=== PATIENT | male | born 1985 | race Asian ===

== ENCOUNTER 2017-10-03 12:29 | Day surgery (SDC) | payer OTHER ==
[~2017-10-03 12:29] MED LIST: Glycopyrrolate 0.2 MG/ML 5 ML MDV IV ONE; Lactated Ringers 1,000 ML IV ONE; Midazolam 1 MG/ML 2 ML SDV IV ONE; Neostigmine Methylsulfate 10 MG/10 ML MDV IVPUSH ONE; Ondansetron 4 MG/2 ML SDV IVPUSH ONE; Propofol 200 MG/20 ML SDV IV ONE; Rocuronium 100 MG/10 ML MDV IV ONE; Succinylcholine 200 MG/10 ML MDV IV ONE; fentaNYL 100 MCG/2 ML SDV IV ONE
[2017-10-03] MEDS ORDERED: Ondansetron 8 MG Tab.DIS PO ONE (12:36)
[2017-10-03] MEDS ORDERED: Alum Hydroxide/Mag Hydroxide 15 ML, Lidocaine 2% 15 ML PO ONE ×2 (12:37)
[2017-10-03] MEDS ORDERED: Ondansetron 4 MG/2 ML SDV IVPUSH ONE (13:30)
[2017-10-03] MEDS ORDERED: proTAMINE 250 MG/25 ML SDV IVPUSH ONE (13:30)
[2017-10-03] MEDS ORDERED: Sodium Chloride 0.9% 1,000 ML IV ONE (13:30)
--- NOTE | 2017-10-03 13:30 | EDM.PDOC ---
ED HPI GENERAL MEDICAL PROBLEM - General Stated Complaint: STOMACH PAIN Time Seen by Provider: 10/03/17 12:29 Source of Information: Reports: Patient History Limitations: Reports: No Limitations - History of Present Illness INITIAL COMMENTS - FREE TEXT/NARRATIVE: 31 y.o.w.m came to the ed due to N/V and loose marin 1 hour after he ate breakfast. Pt C/O severe angelique at his Mid upper and RUQ of his abdomen. Pressure applied to his RLQ of his abdomen makes the pain at his BP 166/93 RR 18 Temp 37 Pulse ox 100% Pulse 60 Onset Date: 10/03/17 Onset Time: 09:00 Duration: Hour(s): Location: Reports: Abdomen Quality: Reports: Burning, Dull, Pressure, Throbbing Severity: Moderate Improves with: Reports: Rest Worsens with: Reports: Movement Associated Symptoms: Reports: Nausea/Vomiting mid epigastric pain Pain Score (Numeric/FACES): 10 ACROSS ABDOMEN Pain Score (Numeric/FACES): 5 THROAT Pain Score (Numeric/FACES): 8 - Related Data Allergies Allergy/AdvReac Type Severity Reaction Status Date / Time No Known Allergies Allergy Verified 10/03/17 12:57 Home Meds: Home Meds Ibuprofen 800 mg PO TID 08/24/14 [History] Past Medical History - Past Surgical History Other HEENT Surgeries/Procedures: wears glasses Social & Family History - Living Situation & Occupation Living situation: Reports: Occupation: Employed ED ROS GENERAL - Review of Systems Review Of Systems: See Below Constitutional: Reports: No Symptoms HEENT: Reports: No Symptoms Respiratory: Reports: No Symptoms Cardiovascular: Reports: No Symptoms Endocrine: Reports: No Symptoms GI/Abdominal: Reports: Abdominal Pain : Reports: No Symptoms Musculoskeletal: Reports: No Symptoms Skin: Reports: No Symptoms Neurological: Reports: No Symptoms Psychiatric: Reports: No Symptoms Hematologic/Lymphatic: Reports: No Symptoms Immunologic: Reports: No Symptoms ED EXAM, GI/ABD - Physical Exam Exam: See Below Exam Limited By: No Limitations General Appearance: Alert, WD/WN, Moderate Distress, Other (pale) Eyes: Bilateral: Normal Appearance Ears: Normal External Exam Nose: Normal Inspection Throat/Mouth: Normal Inspection, Normal Lips, Normal Teeth, Normal Gums, Normal Oropharynx, Normal Voice, No Airway Compromise Head: Atraumatic, Normocephalic Neck: Normal Inspection, Supple, Non-Tender, Full Range of Motion Respiratory/Chest: No Respiratory Distress, Lungs Clear, Normal Breath Sounds, No Accessory Muscle Use, Chest Non-Tender Cardiovascular: Normal Peripheral Pulses, Regular Rate, Rhythm, No Edema, No Gallop, No JVD, No Murmur, No Rub GI/Abdominal Exam: Guarding, Rigid (upper abd. ), Tender (epigastric/RUQ of abd. ) (Male) Exam: Deferred Rectal (Males) Exam: Deferred Back Exam: Normal Inspection, Full Range of Motion Extremities: Normal Inspection, Normal Range of Motion, Non-Tender, No Pedal Edema, Normal Capillary Refill Neurological: Alert, Oriented, CN II-XII Intact, Normal Cognition, Normal Gait, Normal Reflexes, No Motor/Sensory Deficits Psychiatric: Normal Affect, Normal Mood Skin Exam: Warm, Dry, Intact, No Rash, Pallor Lymphatic: No Adenopathy Course - Vital Signs Text/Narrative:: 31 y.o.w.m came to the ed due to N/V and loose marin 1 hour after he ate breakfast. Pt C/O severe angelique at his Mid upper and RUQ of his abdomen. Pressure applied to his RLQ of his abdomen makes the pain at his BP 166/93 RR 18 Temp 37 Pulse ox 100% Pulse 60 PE: MID upper RUQ and tender right lower abd. Imaging: Early appy, gastric wall thickening wall thickening of duodenum Labs: WBC 14K Impression: early appy, gastric wall thickening, wall thickening of duodenum 4.06 pm Consultation: Dr. Carrero: Call OR crew in, Surgery planned for 5 pm today. Tx: Protonix, Zofran, GI cocktail, NS, Zosyn, Toradol. Reexam: Improved Plan: Appendectomy, possible endoscopy, Dr. Carrero took over the care at 5 pm Last Recorded V/S: Last Vital Signs Temp 36.9 C 10/04/17 13:00 Pulse 93 10/04/17 13:00 Resp 18 10/04/17 13:00 BP 125/88 10/04/17 13:00 Pulse Ox 96 10/04/17 13:00 - Orders/Labs/Meds Labs: Laboratory Tests 10/03/17 10/03/17 10/03/17 Range/Units 13:30 13:30 13:48 WBC 14.8 H (4.5-12.0) X10-3/uL RBC 5.46 (4.30-5.75) x10(6)uL Hgb 15.6 H (11.5-15.5) g/dL Hct 45.3 (30.0-51.3) % MCV 83.0 (80-96) fL MCH 28.5 (27.7-33.6) pg MCHC 34.3 (32.2-35.4) g/dL RDW 12.3 (11.5-15.5) % Plt Count 278 (125-369) X10(3)uL MPV 7.4 (7.4-10.4) fL Neut % (Auto) 87.2 H (46-82) % Lymph % (Auto) 8.8 L (13-37) % [place] % (Auto) 2.8 L (4-12) % Eos % (Auto) 1 (1.0-5.0) % Baso % (Auto) 0 (0-2) % Neut # (Auto) 12.9 H (1.6-8.3) # Lymph # (Auto) 1.3 (0.6-5.0) # [place] # (Auto) 0.4 (0.0-1.3) # Eos # (Auto) 0.2 (0.0-0.8) # Baso # (Auto) 0.0 (0.0-0.2) # Sodium (135-145) mmol/L Potassium (3.5-5.3) mmol/L Chloride (100-110) mmol/L Carbon Dioxide (21-32) mmol/L BUN (7-18) mg/dL Creatinine (0.70-1.30) mg/dL Est Cr Clr Drug Dosing mL/min Estimated GFR (MDRD) (>60) BUN/Creatinine Ratio (9-20) Glucose (80-116) mg/dL Calcium (8.6-10.2) mg/dL Total Bilirubin (0.1-1.3) mg/dL Direct Bilirubin (0.10-0.20) mg/dL AST (5-25) IU/L ALT (12-36) U/L Alkaline Phosphatase (56-112) IU/L Total Protein (6.0-8.0) g/dL Albumin (3.5-5.2) g/dL Amylase (25-115) U/L Urine Color Yellow (YELLOW) Urine Appearance Clear (CLEAR) Urine pH 6.0 (5.0-6.5) Ur Specific [place] 1.025 (1.010-1.025) Urine Protein Negative (NEGATIVE) mg/dL Urine Glucose (UA) Normal (NEGATIVE) mg/dL Urine Ketones Negative (NEGATIVE) mg/dL Urine Occult Blood Negative (NEGATIVE) Urine Nitrite Negative (NEGATIVE) Urine Bilirubin Negative (NEGATIVE) Urine Urobilinogen Normal (NEGATIVE) mg/dL Ur Leukocyte Esterase Negative (NEGATIVE) Urine RBC 0-5 (0) Urine WBC 0-5 (0) Ur Squamous Epith Cells Few H (NS,R,O) Urine Bacteria Rare H (NS) Urine Mucus Occasional H (NS) Urine Opiates Screen Negative (NEGATIVE) Ur Oxycodone Screen Negative (NEGATIVE) Ur Propoxyphene Screen Negative (NEGATIVE) Ur Barbituates Screen Negative (NEGATIVE) Ur Tricyclics Screen Negative (NEGATIVE) Ur Phencyclidine Scrn Negative (NEGATIVE) Ur Amphetamine Screen Negative (NEGATIVE) Urine MDMA Screen Negative (NEGATIVE) U Benzodiazepines Scrn Negative (NEGATIVE) U Cocaine Metab Screen Negative (NEGATIVE) U Marijuana (THC) Screen Negative (NEGATIVE) Monoscreen (NEGATIVE) 10/03/17 10/03/17 Range/Units 13:48 13:48 WBC (4.5-12.0) X10-3/uL RBC (4.30-5.75) x10(6)uL Hgb (11.5-15.5) g/dL Hct (30.0-51.3) % MCV (80-96) fL MCH (27.7-33.6) pg MCHC (32.2-35.4) g/dL RDW (11.5-15.5) % Plt Count (125-369) X10(3)uL MPV (7.4-10.4) fL Neut % (Auto) (46-82) % Lymph % (Auto) (13-37) % [place] % (Auto) (4-12) % Eos % (Auto) (1.0-5.0) % Baso % (Auto) (0-2) % Neut # (Auto) (1.6-8.3) # Lymph # (Auto) (0.6-5.0) # [place] # (Auto) (0.0-1.3) # Eos # (Auto) (0.0-0.8) # Baso # (Auto) (0.0-0.2) # Sodium 136 (135-145) mmol/L Potassium 3.8 (3.5-5.3) mmol/L Chloride 100 (100-110) mmol/L Carbon Dioxide 30 (21-32) mmol/L BUN 12 (7-18) mg/dL Creatinine 1.0 (0.70-1.30) mg/dL Est Cr Clr Drug Dosing 97.47 mL/min Estimated GFR (MDRD) > 60 (>60) BUN/Creatinine Ratio 12.0 (9-20) Glucose 129 H (80-116) mg/dL Calcium 8.8 (8.6-10.2) mg/dL Total Bilirubin 0.5 (0.1-1.3) mg/dL Direct Bilirubin 0.10 (0.10-0.20) mg/dL AST 18 (5-25) IU/L ALT 47 H (12-36) U/L Alkaline Phosphatase 64 (56-112) IU/L Total Protein 8.0 (6.0-8.0) g/dL Albumin 4.1 (3.5-5.2) g/dL Amylase 28 (25-115) U/L Urine Color (YELLOW) Urine Appearance (CLEAR) Urine pH (5.0-6.5) Ur Specific [place] (1.010-1.025) Urine Protein (NEGATIVE) mg/dL Urine Glucose (UA) (NEGATIVE) mg/dL Urine Ketones (NEGATIVE) mg/dL Urine Occult Blood (NEGATIVE) Urine Nitrite (NEGATIVE) Urine Bilirubin (NEGATIVE) Urine Urobilinogen (NEGATIVE) mg/dL Ur Leukocyte Esterase (NEGATIVE) Urine RBC (0) Urine WBC (0) Ur Squamous Epith Cells (NS,R,O) Urine Bacteria (NS) Urine Mucus (NS) Urine Opiates Screen (NEGATIVE) Ur Oxycodone Screen (NEGATIVE) Ur Propoxyphene Screen (NEGATIVE) Ur Barbituates Screen (NEGATIVE) Ur Tricyclics Screen (NEGATIVE) Ur Phencyclidine Scrn (NEGATIVE) Ur Amphetamine Screen (NEGATIVE) Urine MDMA Screen (NEGATIVE) U Benzodiazepines Scrn (NEGATIVE) U Cocaine Metab Screen (NEGATIVE) U Marijuana (THC) Screen (NEGATIVE) Monoscreen Negative (NEGATIVE) Meds: Medications Discontinued Medications Generic Name Dose Route Start Last Admin Trade Name Freq PRN Reason Stop Dose Admin Hydrocodone Bitart/Acetaminophen 1 tab 10/03/17 18:14 10/04/17 08:42 [place] 325-5 Mg PO 1 tab Q4H PRN Administration Pain (mild 1-3) Al Hydroxide/Mg Hydroxide 15 0 ml 10/03/17 12:37 10/03/17 12:52 ml/ Lidocaine HCl 15 ml PO 10/03/17 12:38 15 ml ONETIME ONE Administration Diatrizoate Meglum/Diatrizoate Sod 30 ml 10/03/17 14:45 10/03/17 15:32 Gastrografin 37% PO 30 ml . DIRECTED LELAND Administration Fentanyl 300 mcg 10/03/17 11:30 Sublimaze IV 10/03/17 11:31 .STK-MED ONE Glycopyrrolate 0.4 mg 10/03/17 11:30 Robinul IV 10/03/17 11:31 .STK-MED ONE Sodium Chloride 1,000 mls @ 999 mls/hr 10/03/17 13:30 10/03/17 13:45 Normal Saline IV 10/03/17 14:30 999 mls/hr .BOLUS ONE Administration Pantoprazole Sodium 40 mg/ 100 mls @ 200 mls/hr 10/03/17 14:12 10/03/17 14:25 Sodium Chloride IV 10/03/17 14:41 200 mls/hr .BOLUS ONE Administration Piperacillin Sod/Tazobactam 50 mls @ 100 mls/hr 10/03/17 16:13 10/03/17 16:23 Sod 3.375 gm/ Sodium Chloride IV 10/03/17 16:42 100 mls/hr ONETIME STA Administration Lactated Ringer's 1,000 mls @ 100 mls/hr 10/03/17 17:00 10/04/17 06:53 Ringers, Lactated IV 100 mls/hr ASDIRECTED LELAND Administration Lactated Ringer's 1,000 mls @ as directed 10/03/17 11:30 Ringers, Lactated IV 10/03/17 11:31 .STK-MED ONE Iopamidol 100 ml 10/03/17 14:37 10/03/17 15:33 Isovue-370 (76%) IV 10/03/17 14:38 89 ml . DIRECTED ONE Administration Ketorolac Tromethamine 30 mg 10/03/17 14:13 10/03/17 14:23 Toradol IVPUSH 10/03/17 14:14 30 mg ONETIME ONE Administration Midazolam HCl 2 mg 10/03/17 11:30 Versed 1 Mg/Ml IV 10/03/17 11:31 .STK-MED ONE Morphine Sulfate 2 mg 10/03/17 18:14 Morphine IVPUSH Q1H PRN Pain (severe 7-10) Neostigmine Methylsulfate 4 mg 10/03/17 11:30 Neostigmine Methylsulfate IVPUSH 10/03/17 11:31 .STK-MED ONE Ondansetron HCl 8 mg 10/03/17 12:36 10/03/17 12:45 Zofran Odt PO 10/03/17 12:37 8 mg ONETIME ONE Administration Ondansetron HCl 8 mg 10/03/17 13:30 10/03/17 13:51 Zofran IVPUSH 10/03/17 13:31 8 mg ONETIME ONE Administration Ondansetron HCl 4 mg 10/03/17 11:30 Zofran IVPUSH 10/03/17 11:31 .STK-MED ONE Propofol 300 mg 10/03/17 11:30 Diprivan 20 Ml IV 10/03/17 11:31 .STK-MED ONE Rocuronium Ramsey 50 mg 10/03/17 11:30 Zemuron IV 10/03/17 11:31 .STK-MED ONE Sodium Chloride 10 ml 10/04/17 08:30 10/04/17 08:30 Saline Flush FLUSH 10 ml ASDIRECTED PRN Administration flush med Succinylcholine Chloride 100 mg 10/03/17 11:30 Quelicin IV 10/03/17 11:31 .STK-MED ONE Departure - Departure Time of Disposition: 13:00 Disposition: Still A Patient 31 Condition: Fair Clinical Impression: Appendicitis - Discharge Information
[2017-10-03] MEDS ORDERED: Pantoprazole 40 MG in Sodium Chloride 0.9% 100 ML IV ONE (14:12)
[2017-10-03] MEDS ORDERED: Ketorolac 30 MG/ML SDV IVPUSH ONE (14:13)
[2017-10-03] MEDS ORDERED: Iopamidol 755 Mg/ML 100 ML Bottle IV ONE (14:37)
[2017-10-03] MEDS ORDERED: Diatrizoate Meglumine/Diatrizoate Sodium 37% 30 ML Bottle PO SCH (14:45)
[2017-10-03] MEDS ORDERED: Piperacillin/Tazobactam 3.375 GM in Sodium Chloride 0.9% 50 ML IV STA (16:13)
[2017-10-03] MEDS: Lactated Ringers 1,000 ML IV SCH ×2 (17:00→20:47)
--- NOTE | 2017-10-03 17:14 | PCM.HP ---
H&P History of Present Illness - General Date of Service: 10/03/17 Source of Information: Patient, EMS History Limitations: Reports: No Limitations - History of Present Illness Onset of Symptoms: Reports: Today Quality: Reports: Ache, Sharp Severity: Moderate Worsens with: Reports: Movement Associated Symptoms: Reports: Nausea/Vomiting mid epigastric pain Pain Score (Numeric/FACES): 10 - Related Data Allergies/Adverse Reactions: Allergies Allergy/AdvReac Type Severity Reaction Status Date / Time No Known Allergies Allergy Verified 10/03/17 12:57 Home Medications: Home Meds Ibuprofen 800 mg PO TID 08/24/14 [History] Past Medical History - Past Health History Medical/Surgical History: Denies Medical/Surgical History - Past Surgical History Other HEENT Surgeries/Procedures: wears glasses Social & Family History - Family History Family Medical History: Unobtainable - Tobacco Use Smoking Status *Q: Never Smoker - Recreational Drug Use Recreational Drug Use: No - Living Situation & Occupation Living situation: Reports: Occupation: Employed H&P Review of Systems - Review of Systems: Review Of Systems: ROS reveals no pertinent complaints other than HPI. Exam - Exam Exam: See Below - Vital Signs Vital Signs: Last Vital Signs Temp 98.6 F 10/03/17 12:30 Pulse 60 10/03/17 12:30 Resp 17 10/03/17 12:30 BP 166/93 H 10/03/17 12:30 Pulse Ox 100 10/03/17 12:30 Weight: 78.471 kg - Exam General: Alert, Oriented Lungs: Clear to Auscultation, Normal Respiratory Effort Cardiovascular: Regular Rate, Regular Rhythm GI/Abdominal Exam: Tender (in upper abdand RLQ) (Male) Exam: No Hernia - Patient Data Lab Results Last 24 hrs: Laboratory Results - last 24 hr 10/03/17 10/03/17 10/03/17 Range/Units 13:30 13:30 13:48 WBC 14.8 H (4.5-12.0) X10-3/uL RBC 5.46 (4.30-5.75) x10(6)uL Hgb 15.6 H (11.5-15.5) g/dL Hct 45.3 (30.0-51.3) % MCV 83.0 (80-96) fL MCH 28.5 (27.7-33.6) pg MCHC 34.3 (32.2-35.4) g/dL RDW 12.3 (11.5-15.5) % Plt Count 278 (125-369) X10(3)uL MPV 7.4 (7.4-10.4) fL Neut % (Auto) 87.2 H (46-82) % Lymph % (Auto) 8.8 L (13-37) % [place] % (Auto) 2.8 L (4-12) % Eos % (Auto) 1 (1.0-5.0) % Baso % (Auto) 0 (0-2) % Neut # (Auto) 12.9 H (1.6-8.3) # Lymph # (Auto) 1.3 (0.6-5.0) # [place] # (Auto) 0.4 (0.0-1.3) # Eos # (Auto) 0.2 (0.0-0.8) # Baso # (Auto) 0.0 (0.0-0.2) # Sodium (135-145) mmol/L Potassium (3.5-5.3) mmol/L Chloride (100-110) mmol/L Carbon Dioxide (21-32) mmol/L BUN (7-18) mg/dL Creatinine (0.70-1.30) mg/dL Est Cr Clr Drug Dosing mL/min Estimated GFR (MDRD) (>60) BUN/Creatinine Ratio (9-20) Glucose (80-116) mg/dL Calcium (8.6-10.2) mg/dL Total Bilirubin (0.1-1.3) mg/dL Direct Bilirubin (0.10-0.20) mg/dL AST (5-25) IU/L ALT (12-36) U/L Alkaline Phosphatase (56-112) IU/L Total Protein (6.0-8.0) g/dL Albumin (3.5-5.2) g/dL Amylase (25-115) U/L Urine Color Yellow (YELLOW) Urine Appearance Clear (CLEAR) Urine pH 6.0 (5.0-6.5) Ur Specific [place] 1.025 (1.010-1.025) Urine Protein Negative (NEGATIVE) mg/dL Urine Glucose (UA) Normal (NEGATIVE) mg/dL Urine Ketones Negative (NEGATIVE) mg/dL Urine Occult Blood Negative (NEGATIVE) Urine Nitrite Negative (NEGATIVE) Urine Bilirubin Negative (NEGATIVE) Urine Urobilinogen Normal (NEGATIVE) mg/dL Ur Leukocyte Esterase Negative (NEGATIVE) Urine RBC 0-5 (0) Urine WBC 0-5 (0) Ur Squamous Epith Cells Few H (NS,R,O) Urine Bacteria Rare H (NS) Urine Mucus Occasional H (NS) Urine Opiates Screen Negative (NEGATIVE) Ur Oxycodone Screen Negative (NEGATIVE) Ur Propoxyphene Screen Negative (NEGATIVE) Ur Barbituates Screen Negative (NEGATIVE) Ur Tricyclics Screen Negative (NEGATIVE) Ur Phencyclidine Scrn Negative (NEGATIVE) Ur Amphetamine Screen Negative (NEGATIVE) Urine MDMA Screen Negative (NEGATIVE) U Benzodiazepines Scrn Negative (NEGATIVE) U Cocaine Metab Screen Negative (NEGATIVE) U Marijuana (THC) Screen Negative (NEGATIVE) Monoscreen (NEGATIVE) 10/03/17 10/03/17 Range/Units 13:48 13:48 WBC (4.5-12.0) X10-3/uL RBC (4.30-5.75) x10(6)uL Hgb (11.5-15.5) g/dL Hct (30.0-51.3) % MCV (80-96) fL MCH (27.7-33.6) pg MCHC (32.2-35.4) g/dL RDW (11.5-15.5) % Plt Count (125-369) X10(3)uL MPV (7.4-10.4) fL Neut % (Auto) (46-82) % Lymph % (Auto) (13-37) % [place] % (Auto) (4-12) % Eos % (Auto) (1.0-5.0) % Baso % (Auto) (0-2) % Neut # (Auto) (1.6-8.3) # Lymph # (Auto) (0.6-5.0) # [place] # (Auto) (0.0-1.3) # Eos # (Auto) (0.0-0.8) # Baso # (Auto) (0.0-0.2) # Sodium 136 (135-145) mmol/L Potassium 3.8 (3.5-5.3) mmol/L Chloride 100 (100-110) mmol/L Carbon Dioxide 30 (21-32) mmol/L BUN 12 (7-18) mg/dL Creatinine 1.0 (0.70-1.30) mg/dL Est Cr Clr Drug Dosing 97.47 mL/min Estimated GFR (MDRD) > 60 (>60) BUN/Creatinine Ratio 12.0 (9-20) Glucose 129 H (80-116) mg/dL Calcium 8.8 (8.6-10.2) mg/dL Total Bilirubin 0.5 (0.1-1.3) mg/dL Direct Bilirubin 0.10 (0.10-0.20) mg/dL AST 18 (5-25) IU/L ALT 47 H (12-36) U/L Alkaline Phosphatase 64 (56-112) IU/L Total Protein 8.0 (6.0-8.0) g/dL Albumin 4.1 (3.5-5.2) g/dL Amylase 28 (25-115) U/L Urine Color (YELLOW) Urine Appearance (CLEAR) Urine pH (5.0-6.5) Ur Specific [place] (1.010-1.025) Urine Protein (NEGATIVE) mg/dL Urine Glucose (UA) (NEGATIVE) mg/dL Urine Ketones (NEGATIVE) mg/dL Urine Occult Blood (NEGATIVE) Urine Nitrite (NEGATIVE) Urine Bilirubin (NEGATIVE) Urine Urobilinogen (NEGATIVE) mg/dL Ur Leukocyte Esterase (NEGATIVE) Urine RBC (0) Urine WBC (0) Ur Squamous Epith Cells (NS,R,O) Urine Bacteria (NS) Urine Mucus (NS) Urine Opiates Screen (NEGATIVE) Ur Oxycodone Screen (NEGATIVE) Ur Propoxyphene Screen (NEGATIVE) Ur Barbituates Screen (NEGATIVE) Ur Tricyclics Screen (NEGATIVE) Ur Phencyclidine Scrn (NEGATIVE) Ur Amphetamine Screen (NEGATIVE) Urine MDMA Screen (NEGATIVE) U Benzodiazepines Scrn (NEGATIVE) U Cocaine Metab Screen (NEGATIVE) U Marijuana (THC) Screen (NEGATIVE) Monoscreen Negative (NEGATIVE) Result Diagrams: 10/03/17 13:48 10/03/17 13:48 Eddie Results Last 24 hrs: Microbiology 10/03/17 13:30 Stool Occult Blood (EDDIE) - Final Stool / Feces NEGATIVE OCCULT BLOOD Imaging Impressions Last 24 hrs: CT suggests early appendicitis Problem List Initiated/Reviewed/Updated: Yes Orders Last 24hrs: Active Orders 24 hr Category Date Time Status Abdomen Pelvis w Cont [CT] Stat Exams 10/03/17 14:12 Taken DRUG SCREEN, URINE ALERE [URCHEM] Stat Lab 10/03/17 13:30 Ordered UA W/MICROSCOPIC [URIN] Stat Lab 10/03/17 13:30 Ordered Diatrizoate Lachelle/Diatrizoate Na [Gastrografin 37%] Med 10/03/17 14:45 Active 30 ml PO . DIRECTED Medication Orders Diatrizoate Meglum/Diatrizoate Sod (Gastrografin 37%) 30 ml PO . DIRECTED LELAND Last Admin: 10/03/17 15:32 Dose: 30 ml Assessment/Plan Comment:: Abd pain Will proceed with lap appy, risks and complications reviewed, consent obtained
--- NOTE | 2017-10-03 18:13 | PCM.OPNOTE ---
- General Post-Op/Procedure Note Date of Surgery/Procedure: 10/03/17 Operative Procedure(s): Lap Appy Findings: Acute Appy Pre Op Diagnosis: Abd Pain Post-Op Diagnosis: Same Anesthesia Technique: General ET Tube Primary Surgeon: Shon Carrero Pathology: Appendix EBL in mLs: 10 Complications: None Condition: Stable
[2017-10-03] MEDS ORDERED: Acetaminophen/HYDROcodone 325-5 MG Tab PO PRN (18:14)
[2017-10-03] MEDS ORDERED: Morphine 2 MG/ML Syringe IVPUSH PRN (18:14)
--- NOTE | 2017-10-03 18:46 | OR ---
DATE OF OPERATION: 10/03/2017 SURGEON: Shon Carrero MD PREOPERATIVE DIAGNOSIS: Abdominal pain. POSTOPERATIVE DIAGNOSIS: Acute appendicitis. PROCEDURE: Laparoscopic appendectomy. ANESTHESIA: General endotracheal. DESCRIPTION OF PROCEDURE: The patient was brought to the operating room, where general endotracheal anesthesia was administered. His abdomen was clipped, prepped with ChloraPrep, and draped sterilely. An infraumbilical incision was made and extended into the peritoneal cavity without difficulty. The Geoff cannula was introduced and pneumoperitoneum obtained. 5 mm ports were placed in the suprapubic position and fci between the umbilicus and pubis. The patient was placed in Trendelenburg position and rotated to his left. A large, hard and dilated appendix was easily identified. This was consistent with acute appendicitis. A window was made in the mesoappendix, and the base of the appendix transected with an Endo-LENORE 3.5 mm stapler at its junction with the cecum. The second application of the stapler using a 2.5-mm cartridge was used to transect the mesoappendix. Appendix was brought out through the umbilical incision site. Right lower quadrant was inspected and irrigated, and staple lines were intact. Hemostasis was assured. No other abnormalities were noted on the surface of the liver, peritoneum, omentum, or visible bowel surfaces. Ports were removed under direct vision and remained hemostatic. Umbilical fascia was closed with [id number] 0 Vicryl. Skin was closed with 4-0 Vicryl subcuticular sutures. There was minimal oozing from the skin edges that stopped spontaneously. Benzoin and Steri-Strips were placed and Band-Aids applied. The patient tolerated the procedure well. Estimated blood losswas 10 mL. He returned to Postanesthesia in a stable condition. /[id number] CARRI/NASREEN
[2017-10-04] MEDS: Lactated Ringers 1,000 ML IV SCH (06:53)
[2017-10-04] MEDS ORDERED: Sodium Chloride 0.9% 10 ML Syringe FLUSH PRN (08:30)
--- NOTE | 2017-10-04 08:57 | CT ---
INDICATION: Abdominal pain. CT ABDOMEN AND PELVIS WITH CONTRAST: Spiral 2.5 mm axial sections were obtained through the abdomen and pelvis with oral and IV contrast (89 mL Isovue 370 at 2.5 mL/second), with sagittal and coronal reconstructions, 10/03/2017 - no comparisons. Total exam DLP = 718.42 mGy-cm. An active infiltrate or effusion was not identified in the lower lung zaldivar or pleural spaces visualized. The heart appears somewhat prominent in size, which may represent an athletic heart - a normal variant, but should be correlated clinically. No pericardial effusion was seen. The adrenal glands, liver, gallbladder, spleen, and pancreas were unremarkable. The common bile duct was normal in caliber. The kidneys appeared normal, except for a few tiny low density lesions compatible with benign cystic structures in the lower poles. No retroperitoneal mass was seen. Urinary bladder was unremarkable. Prostate did not appear significantly enlarged. No hernia was seen. The appendix is somewhat enlarged, measuring approximately 11-12 mm in maximum diameter. No significant periappendiceal fat stranding or peritonitis was seen. No abscess was identified. Findings may represent very early appendicitis. Also noted is appearance of thickening of the wall of the gastric antrum and distal duodenum, as well as proximal jejunal loops. Etiology is indeterminate but could be on the basis of peptic ulcer disease or possibly parasitic infection. This should be correlated clinically. Disk disease is suggested at L4-5 with narrowing of the disk space and hypertrophic spurring, mostly posteriorly off vertebral bodies, with somewhat narrowed neural foramina at the L4-5 level. No additional organomegaly, mass lesions, or free fluid collections were identified in the abdomen or pelvis. IMPRESSION: 1. Findings suggest possibility of early appendicitis with suggestion of only very minimal degree of periappendiceal fat stranding noted. 2. Thickening of the wall of the gastric antrum, duodenum, and proximal jejunal loops, etiology indeterminate, could be on the basis of peptic ulcer disease, although parasitic infection would be a consideration also. 3. Degenerative changes and disk disease L4-5 with narrowing of neural foramina at that level. Report was called to Dr. Aguilar at 1555 hours on 10/03/2017. [facility]
--- NOTE | 2017-10-04 12:23 | PCM.SURGPN ---
- General Info Date of Service: 10/04/17 POD#: 1 Functional Status: Reports: Pain Controlled, Tolerating Diet, Ambulating, Urinating - Review of Systems General: Reports: No Symptoms - Patient Data Vitals - Most Recent: Last Vital Signs Temp 98.7 F 10/04/17 07:10 Pulse 86 10/04/17 08:45 Resp 18 10/04/17 07:10 BP 134/88 10/04/17 07:10 Pulse Ox 96 10/04/17 08:45 Weight - Most Recent: 79.787 kg I&O - Last 24 Hours: Intake & Output 10/03/17 10/04/17 10/04/17 22:59 06:59 14:59 Intake Total 829 794 550 Output Total 0 Balance 829 794 550 Lab Results Last 24 Hrs: Laboratory Results - last 24 hr 10/03/17 10/03/17 10/03/17 Range/Units 13:30 13:30 13:48 WBC 14.8 H (4.5-12.0) X10-3/uL RBC 5.46 (4.30-5.75) x10(6)uL Hgb 15.6 H (11.5-15.5) g/dL Hct 45.3 (30.0-51.3) % MCV 83.0 (80-96) fL MCH 28.5 (27.7-33.6) pg MCHC 34.3 (32.2-35.4) g/dL RDW 12.3 (11.5-15.5) % Plt Count 278 (125-369) X10(3)uL MPV 7.4 (7.4-10.4) fL Neut % (Auto) 87.2 H (46-82) % Lymph % (Auto) 8.8 L (13-37) % [place] % (Auto) 2.8 L (4-12) % Eos % (Auto) 1 (1.0-5.0) % Baso % (Auto) 0 (0-2) % Neut # (Auto) 12.9 H (1.6-8.3) # Lymph # (Auto) 1.3 (0.6-5.0) # [place] # (Auto) 0.4 (0.0-1.3) # Eos # (Auto) 0.2 (0.0-0.8) # Baso # (Auto) 0.0 (0.0-0.2) # Sodium (135-145) mmol/L Potassium (3.5-5.3) mmol/L Chloride (100-110) mmol/L Carbon Dioxide (21-32) mmol/L BUN (7-18) mg/dL Creatinine (0.70-1.30) mg/dL Est Cr Clr Drug Dosing mL/min Estimated GFR (MDRD) (>60) BUN/Creatinine Ratio (9-20) Glucose (80-116) mg/dL Calcium (8.6-10.2) mg/dL Total Bilirubin (0.1-1.3) mg/dL Direct Bilirubin (0.10-0.20) mg/dL AST (5-25) IU/L ALT (12-36) U/L Alkaline Phosphatase (56-112) IU/L Total Protein (6.0-8.0) g/dL Albumin (3.5-5.2) g/dL Amylase (25-115) U/L Urine Color Yellow (YELLOW) Urine Appearance Clear (CLEAR) Urine pH 6.0 (5.0-6.5) Ur Specific [place] 1.025 (1.010-1.025) Urine Protein Negative (NEGATIVE) mg/dL Urine Glucose (UA) Normal (NEGATIVE) mg/dL Urine Ketones Negative (NEGATIVE) mg/dL Urine Occult Blood Negative (NEGATIVE) Urine Nitrite Negative (NEGATIVE) Urine Bilirubin Negative (NEGATIVE) Urine Urobilinogen Normal (NEGATIVE) mg/dL Ur Leukocyte Esterase Negative (NEGATIVE) Urine RBC 0-5 (0) Urine WBC 0-5 (0) Ur Squamous Epith Cells Few H (NS,R,O) Urine Bacteria Rare H (NS) Urine Mucus Occasional H (NS) Urine Opiates Screen Negative (NEGATIVE) Ur Oxycodone Screen Negative (NEGATIVE) Ur Propoxyphene Screen Negative (NEGATIVE) Ur Barbituates Screen Negative (NEGATIVE) Ur Tricyclics Screen Negative (NEGATIVE) Ur Phencyclidine Scrn Negative (NEGATIVE) Ur Amphetamine Screen Negative (NEGATIVE) Urine MDMA Screen Negative (NEGATIVE) U Benzodiazepines Scrn Negative (NEGATIVE) U Cocaine Metab Screen Negative (NEGATIVE) U Marijuana (THC) Screen Negative (NEGATIVE) Monoscreen (NEGATIVE) 08/14/18 08/14/18 Range/Units 13:48 13:48 WBC (4.5-12.0) X10-3/uL RBC (4.30-5.75) x10(6)uL Hgb (11.5-15.5) g/dL Hct (30.0-51.3) % MCV (80-96) fL MCH (27.7-33.6) pg MCHC (32.2-35.4) g/dL RDW (11.5-15.5) % Plt Count (125-369) X10(3)uL MPV (7.4-10.4) fL Neut % (Auto) (46-82) % Lymph % (Auto) (13-37) % [place] % (Auto) (4-12) % Eos % (Auto) (1.0-5.0) % Baso % (Auto) (0-2) % Neut # (Auto) (1.6-8.3) # Lymph # (Auto) (0.6-5.0) # [place] # (Auto) (0.0-1.3) # Eos # (Auto) (0.0-0.8) # Baso # (Auto) (0.0-0.2) # Sodium 136 (135-145) mmol/L Potassium 3.8 (3.5-5.3) mmol/L Chloride 100 (100-110) mmol/L Carbon Dioxide 30 (21-32) mmol/L BUN 12 (7-18) mg/dL Creatinine 1.0 (0.70-1.30) mg/dL Est Cr Clr Drug Dosing 97.47 mL/min Estimated GFR (MDRD) > 60 (>60) BUN/Creatinine Ratio 12.0 (9-20) Glucose 129 H (80-116) mg/dL Calcium 8.8 (8.6-10.2) mg/dL Total Bilirubin 0.5 (0.1-1.3) mg/dL Direct Bilirubin 0.10 (0.10-0.20) mg/dL AST 18 (5-25) IU/L ALT 47 H (12-36) U/L Alkaline Phosphatase 64 (56-112) IU/L Total Protein 8.0 (6.0-8.0) g/dL Albumin 4.1 (3.5-5.2) g/dL Amylase 28 (25-115) U/L Urine Color (YELLOW) Urine Appearance (CLEAR) Urine pH (5.0-6.5) Ur Specific [place] (1.010-1.025) Urine Protein (NEGATIVE) mg/dL Urine Glucose (UA) (NEGATIVE) mg/dL Urine Ketones (NEGATIVE) mg/dL Urine Occult Blood (NEGATIVE) Urine Nitrite (NEGATIVE) Urine Bilirubin (NEGATIVE) Urine Urobilinogen (NEGATIVE) mg/dL Ur Leukocyte Esterase (NEGATIVE) Urine RBC (0) Urine WBC (0) Ur Squamous Epith Cells (NS,R,O) Urine Bacteria (NS) Urine Mucus (NS) Urine Opiates Screen (NEGATIVE) Ur Oxycodone Screen (NEGATIVE) Ur Propoxyphene Screen (NEGATIVE) Ur Barbituates Screen (NEGATIVE) Ur Tricyclics Screen (NEGATIVE) Ur Phencyclidine Scrn (NEGATIVE) Ur Amphetamine Screen (NEGATIVE) Urine MDMA Screen (NEGATIVE) U Benzodiazepines Scrn (NEGATIVE) U Cocaine Metab Screen (NEGATIVE) U Marijuana (THC) Screen (NEGATIVE) Monoscreen Negative (NEGATIVE) Eddie Results Last 24 Hrs: Microbiology 10/03/17 13:30 Stool Occult Blood (EDDIE) - Final Stool / Feces NEGATIVE OCCULT BLOOD Med Orders - Current: Current Medications Hydrocodone Bitart/Acetaminophen ([place] 325-5 Mg) 1 tab PO Q4H PRN PRN Reason: Pain (mild 1-3) Last Admin: 10/04/17 08:42 Dose: 1 tab Morphine Sulfate (Morphine) 2 mg IVPUSH Q1H PRN PRN Reason: Pain (severe 7-10) Sodium Chloride (Saline Flush) 10 ml FLUSH ASDIRECTED PRN PRN Reason: flush med Last Admin: 10/04/17 08:30 Dose: 10 ml Discontinued Medications Al Hydroxide/Mg Hydroxide 15 (ml/ Lidocaine HCl 15 ml) 0 ml PO ONETIME ONE Stop: 10/03/17 12:38 Last Admin: 10/03/17 12:52 Dose: 15 ml Diatrizoate Meglum/Diatrizoate Sod (Gastrografin 37%) 30 ml PO . DIRECTED LELAND Last Admin: 10/03/17 15:32 Dose: 30 ml Sodium Chloride (Normal Saline) 1,000 mls @ 999 mls/hr IV .BOLUS ONE Stop: 10/03/17 14:30 Last Admin: 10/03/17 13:45 Dose: 999 mls/hr Pantoprazole Sodium 40 mg/ (Sodium Chloride) 100 mls @ 200 mls/hr IV .BOLUS ONE Stop: 10/03/17 14:41 Last Admin: 10/03/17 14:25 Dose: 200 mls/hr Piperacillin Sod/Tazobactam (Sod 3.375 gm/ Sodium Chloride) 50 mls @ 100 mls/ hr IV ONETIME STA Stop: 10/03/17 16:42 Last Admin: 10/03/17 16:23 Dose: 100 mls/hr Lactated Ringer's (Ringers, Lactated) 1,000 mls @ 100 mls/hr IV ASDIRECTED [facility] Last Admin: 10/04/17 06:53 Dose: 100 mls/hr Iopamidol (Isovue-370 (76%)) 100 ml IV . DIRECTED ONE Stop: 10/03/17 14:38 Last Admin: 10/03/17 15:33 Dose: 89 ml Ketorolac Tromethamine (Toradol) 30 mg IVPUSH ONETIME ONE Stop: 10/03/17 14:14 Last Admin: 10/03/17 14:23 Dose: 30 mg Ondansetron HCl (Zofran Odt) 8 mg PO ONETIME ONE Stop: 10/03/17 12:37 Last Admin: 10/03/17 12:45 Dose: 8 mg Ondansetron HCl (Zofran) 8 mg IVPUSH ONETIME ONE Stop: 10/03/17 13:31 Last Admin: 10/03/17 13:51 Dose: 8 mg - Exam Wound/Incisions: Healing Well, Dressing Dry and Intact GI/Abdominal Exam: Soft, Non-Tender - Problem List Review Problem List Initiated/Reviewed/Updated: Yes - My Orders Last 24 Hours: Active Orders 24 hr Category Date Time Status Patient Status [ADT] Routine ADT 10/03/17 17:05 Active Ambulate [RC] Q4HPRN Care 10/03/17 18:15 Active May Shower [RC] ASDIRECTED Care 10/04/17 08:00 Active Oxygen Therapy [RC] PRN Care 10/03/17 18:14 Active RT Incentive Spirometry [RC] Q2HWA Care 10/03/17 18:14 Active Vital Signs [RC] 08,12,16,20,00,04 Care 10/03/17 18:14 Active [place] [Soft Diet] [DIET] Diet 10/04/17 Lunch Ordered DRUG SCREEN, URINE ALERE [URCHEM] Stat Lab 10/03/17 13:30 Ordered UA W/MICROSCOPIC [URIN] Stat Lab 10/03/17 13:30 Ordered Acetaminophen/HYDROcodone [[place] 325-5 MG] Med 10/03/17 18:14 Active 1 tab PO Q4H PRN Morphine Med 10/03/17 18:14 Active 2 mg IVPUSH Q1H PRN Sodium Chloride 0.9% [Saline Flush] Med 10/04/17 08:30 Active 10 ml FLUSH ASDIRECTED PRN Convert IV to Saline Lock [OM.PC] Routine Oth 10/04/17 07:59 Ordered Code Status [Resuscitation Status] Routine Resus Stat 10/03/17 22:45 Ordered Medication Orders Hydrocodone Bitart/Acetaminophen ([place] 325-5 Mg) 1 tab PO Q4H PRN PRN Reason: Pain (mild 1-3) Last Admin: 10/04/17 08:42 Dose: 1 tab Morphine Sulfate (Morphine) 2 mg IVPUSH Q1H PRN PRN Reason: Pain (severe 7-10) Sodium Chloride (Saline Flush) 10 ml FLUSH ASDIRECTED PRN PRN Reason: flush med Last Admin: 10/04/17 08:30 Dose: 10 ml - Assessment Assessment (Free Text/Narrative):: Doing well post op - Plan Plan (Free Text/Narrative):: Ok to discharge
[2017-10-04 13:18] VITALS: BP 125/88
== END 2017-10-04 13:50 | disposition home or self-care (01) ==
LOC: FB.ED 12:29 → FB.SDS 17:17 → FB.MS 19:00 → FB.SDS 10-04 13:50
PROVIDERS: ATTEND Surgery
DX: K35.2 Acute appendicitis with generalized peritonitis (principal)
CPT/HCPCS: 36415; 44970; 74177; 80048; 80076; 80305; 81001; 82150; 82272; 85025; 86308; 88304; 94150; 96361; 96365; 96367; 96375; 99285; A9270; C9113; J0330; J1885; J2250; J2405; J2543; J2704; J2710; J3010; J3490; J7030; J7050; J7120; Q9963; Q9967